=== PATIENT | male | born 1945 | race Asian ===

== ENCOUNTER 2017-01-06 16:29 | Observation (INO) | payer MEDICARE, BC ==
[2017-01-06] VITALS (9 sets, daily range): BP systolic 132–152; BP diastolic 64–80; PULSE 78–88; TEMP 98.1–98.5
[~2017-01-06] VITALS: Ht 172.7 cm; Wt 110.7 kg
[~2017-01-06 16:29] MED LIST: ASPIRIN E.C. 8181 MG PO; CALCIUM600 M1 PO; DIABETA 2.5MG2.5 MG PO; FOLIC ACID800 MCG PO; GLUCOPHAGE XR500 M1 PO; LUTEIN20 MG PO; MONOPRIL40 MG PO; NORVASC 5MG5 MG/TAB PO; OMEGA-31000 MG PO; ONGLYZA2.5 MG PO; PRAVACHOL 40MG40 MG PO; TRIAM/HCTZ PO; VITAMIN D2000 I1 PO; ZYLOPRIM 300MG300 MG PO; [UNRECOGNIZED DRUG - OTHER] PO
[2017-01-06] MEDS ORDERED: CLEOCIN HC150 MG/CAP PO (16:39)
[2017-01-06] MEDS ORDERED: ZYLOPRIM 300MG300 MG PO (16:39)
[2017-01-06] MEDS ORDERED: ASPIRIN E.C. 8181 MG PO (16:39)
[2017-01-06] MEDS ORDERED: HYGROTON 2525 MG/TAB (16:40)
[2017-01-06] MEDS ORDERED: CALCIUM-500 5001 CTB PO (16:40)
[2017-01-06] MEDS ORDERED: PROSCAR 5MG5 MG PO (16:41)
[2017-01-06] MEDS ORDERED: VITAMIN D1000 IU PO (16:41)
[2017-01-06] MEDS ORDERED: MONOPRIL40 MG PO (16:42)
[2017-01-06] MEDS ORDERED: FOLIC ACID 40400 MCG PO (16:42)
[2017-01-06] MEDS ORDERED: LUTEIN20 M1 (16:43)
[2017-01-06] MEDS ORDERED: GLUCOTROL 5M5 MG/TAB PO (16:43)
[2017-01-06] MEDS ORDERED: GLUCOPHAGE500 MG/TAB PO (16:44)
[2017-01-06] MEDS ORDERED: OMEGA-3 1000 MG1 CAP PO (16:44)
[2017-01-06] MEDS ORDERED: PRAVACHOL 40MG40 MG PO (16:45)
[2017-01-06] MEDS ORDERED: ALDACTONE 25MG25 M1 PO (16:46)
[2017-01-06] MEDS ORDERED: AZULFIDINE500 MG/TAB PO (16:47)
[2017-01-06] MEDS ORDERED: NORVASC 10MG10 MG PO (19:17)
[2017-01-07 04:44] VITALS: BP 140/67; PULSE 82; TEMP 99.7
[2017-01-07 09:42] VITALS: BP 145/67; PULSE 87; TEMP 98.2
== END 2017-01-07 10:00 | disposition home or self-care (01) ==
LOC: SURG 16:29
DX: K11.6 Mucocele of salivary gland (principal); E11.9 Type 2 diabetes mellitus without complications; I10 Essential (primary) hypertension; E78.00 Pure hypercholesterolemia, unspecified; N40.0 Benign prostatic hyperplasia without lower urinary tract symptoms
CPT/HCPCS: G0378; G0379; J0295; J0330; J0690; J2405; J2704; J2765; J3010; J7030

== ENCOUNTER → 2018-08-18 | Outpatient (CLI) | payer MEDICARE, BC ==
[~2018-08-18] MED LIST changes: +ALDACTONE 25MG25 M1 PO; +AZULFIDINE500 MG/TAB PO; +CALCIUM-500 5001 CTB PO; +CLEOCIN HC150 MG/CAP PO; +FOLIC ACID 40400 MCG PO; +GLUCOPHAGE500 MG/TAB PO; +GLUCOTROL 5M5 MG/TAB PO; +HYGROTON 2525 MG/TAB; +LUTEIN20 M1; +NORVASC 10MG10 MG PO; +OMEGA-3 1000 MG1 CAP PO; +PROSCAR 5MG5 MG PO; +VITAMIN D1000 IU PO
== END ==
LOC: COL.RAD 06:58
DX: C18.2 Malignant neoplasm of ascending colon (principal); D73.89 Other diseases of spleen
CPT/HCPCS: Q9967

== ENCOUNTER 2018-08-23 13:36 | Inpatient (IN) | payer MEDICARE, BC ==
[~2018-08-23] VITALS: Ht 172.7 cm; Wt 105.7 kg
[2018-08-31] VITALS (11 sets, daily range): BP systolic 94–147; BP diastolic 43–82; PULSE 70–92; TEMP 97.7–98.7
[2018-09-01 04:59] VITALS: BP 115/49; PULSE 75; TEMP 98.2
[2018-09-01 05:56] LABS: HEMOGLOBIN 11.5 g/dl (13.5-18.0)
[2018-09-01 05:58] LABS: HEMATOCRIT 34.3 % (42.0-52.0)
[2018-09-01 06:08] LABS: CALCIUM 8.2 mg/dL (8.4-10.2); CREATININE, serum 0.98 mg/dL (0.66-1.25); POTASSIUM 3.7 mmol/L (3.4-5.0)
[2018-09-01 07:45] VITALS: BP 108/56; PULSE 68; TEMP 97.6
[2018-09-01 12:04] VITALS: BP 116/50; PULSE 72; TEMP 98.2
[2018-09-01 15:39] VITALS: BP 97/43; PULSE 76; TEMP 97.9
[2018-09-01] MEDS ORDERED: NEURONTIN100 MG/CAP PO (17:39)
[2018-09-01 20:23] VITALS: BP 115/47; PULSE 74; TEMP 98.5
[2018-09-02 03:40] VITALS: BP 130/60; PULSE 80; TEMP 98.2
[2018-09-02 08:09] VITALS: BP 128/61; PULSE 74; TEMP 98.4
== END 2018-09-02 10:45 | disposition home or self-care (01) | DRG 330 ==
LOC: INPTSU 08-31 08:16 → SURG 08-31 10:30
PROVIDERS: Surgery
PROC: 0DTF4ZZ Resection of Right Large Intestine, Percutaneous Endoscopic Approach (ICD-10-PCS; principal; 2018-08-31 10:30)
DX: C18.3 Malignant neoplasm of hepatic flexure (principal); K51.90 Ulcerative colitis, unspecified, without complications; E11.9 Type 2 diabetes mellitus without complications; I10 Essential (primary) hypertension
CPT/HCPCS: A4314; A9284; J0690; J1100; J1650; J1885; J2405; J2704; J3010; J7030

== ENCOUNTER 2019-01-05 10:20 | Emergency (ER) | payer MEDICARE, BC ==
[~2019-01-05] VITALS: Ht 170.2 cm; Wt 103.6 kg
[~2019-01-05 10:20] MED LIST changes: +NEURONTIN100 MG/CAP PO
[2019-01-05] MEDS ORDERED: NORCO 325 MG-51 TAB PO (11:47)
[2019-01-05 12:01] VITALS: BP 152/83; PULSE 77; TEMP 98.8
== END 2019-01-05 12:02 | disposition home or self-care (01) ==
LOC: COL.ER 10:20
DX: S30.0XXA Contusion of lower back and pelvis, initial encounter (principal); W01.0XXA Fall on same level from slipping, tripping and stumbling without subsequent striking against object, initial encounter; Y92.009 Unspecified place in unspecified non-institutional (private) residence as the place of occurrence of the external cause

== ENCOUNTER 2021-03-19 11:40 | Emergency (ER) | payer MEDICARE, BC ==
[~2021-03-19] VITALS: Ht 170.2 cm; Wt 113.6 kg
[~2021-03-19 11:40] MED LIST changes: +NORCO 325 MG-51 TAB PO
[2021-03-19 12:36] LABS: HEMOGLOBIN 13.5 g/dl (13.5-18.0); MEAN CELL VOLUME 96 fl (80.0-100.0); MEAN CORPUSCULAR HEMOGLOBIN 31 pg (27.0-31.0); MEAN CORPUSCULAR HGB CONC 32 g/dl (33.0-37.0); MEAN PLATELET VOLUME 10.1 fl (7.4-10.4); PLATELET COUNT 219 K/mm3 (130-400); RED BLOOD COUNT 4.38 M/mm3 (4.20-5.60); REDCELL DISTRIBUTION WIDTH-CV 14.1 % (11.5-14.5)
[2021-03-19 12:43] LABS: PROTHROMBIN TIME 11.1 SECONDS (9.7-12.8)
[2021-03-19 12:46] LABS: PARTIAL THROMBOPLASTIN TIME 27.4 SECONDS (26.0-37.0)
[2021-03-19 12:47] LABS: ALANINE AMINOTRANSFERASE 27 U/L (4-49); ALBUMIN 4.4 gm/dL (3.5-5.0); ALKALINE PHOSPHATASE 64 U/L (50-136); ANION GAP 5 mmol/L (7-16); AST,SGOT 32 U/L (15-37); BILIRUBIN,TOTAL 0.6 mg/dL (0.0-1.0); BLOOD UREA NITROGEN 23 mg/dL (9-20); CALCIUM 9.7 mg/dL (8.4-10.2); CARBON DIOXIDE 28 mmol/L (22-30); CHLORIDE 100 mmol/L (98-107); CREATININE, serum 0.88 (0.66-1.25); GLUCOSE 109 mg/dL (74-106); SODIUM 133 mmol/L (137-145); TOTAL PROTEIN 7.8 gm/dL (6.4-8.2)
[2021-03-19 12:54] LABS: BASOPHIL 1 % (0-2); EOSINOPHIL 1 % (0-4); LYMPHOCYTE 29 % (20.0-51.0); NEUTROPHILS 54 % (42.0-75.2); PLATELET ESTIMATE NORMAL (NORMAL)
[2021-03-19 12:55] LABS: HYPOCHROMIA 2+
[2021-03-19 13:03] LABS: POTASSIUM 4.2 mmol/L (3.4-5.0); TROPONIN-I < 0.012 ng/mL (0.000-0.035)
[2021-03-19 15:15] VITALS: BP 103/77; PULSE 75; TEMP 97.3
== END 2021-03-19 15:22 | disposition home or self-care (01) ==
LOC: COL.ER 11:40
PROVIDERS: Family Medicine
DX: M54.12 Radiculopathy, cervical region (principal); R07.9 Chest pain, unspecified; I10 Essential (primary) hypertension; Z79.899 Other long term (current) drug therapy